=== PATIENT | female | born 2000 | race Caucasian/White ===

== ENCOUNTER 2020-02-06 08:32 | Emergency (ER) | payer OTHER ==
[2020-02-06 08:39] VITALS: BP 118/70
[2020-02-06] MEDS ORDERED: ACETAMINOPHEN 325 MG TABLET PO ONE (09:15)
[2020-02-06] MEDS ORDERED: HYDROCODONE/ACETAMINOPHEN 5-325 MG (6 TAB/ER DISP) PO PRN (09:41)
--- NOTE | 2020-02-06 14:08 | ER Document Report ---
Entered by JODI RODRIGUEZ SCRIBE 02/06/20 0934 Acting as scribe for:YOJANA VELÁZQUEZ MD ED Hand/Wrist Injury - General Chief Complaint: Finger Injury Stated Complaint: FINGER INJURY Time Seen by Provider: 02/06/20 09:22 Primary Care Provider: MAHAD ARRIAGA PA-C [Primary Care Provider] - Follow up as needed Mode of Arrival: Ambulatory Information source: Patient Notes: This 19 year old female patient presents to the ED today with complaints of a nail injury on her right 3rd digit that occurred just prior to arrival. Patient states that she was running up the stairs, tripped, and fell forward, landing on her hand. She states that she wears acrylic nails and believes that the acrylic nail pulled her actual nail from the nail bed. She states that the nail itself feels "weird, like a pressure." Denies any other complaints. - Related Data Allergies/Adverse Reactions: No Known Allergies Allergy (Unverified 02/06/20 09:16) Past Medical History - General Information source: Patient - Social History Smoking Status: Never Smoker Cigarette use (# per day): No Chew tobacco use (# tins/day): No Smoking Education Provided: No Frequency of alcohol use: None Drug Abuse: None Lives with: Spouse/Significant other Family History: Reviewed & Not Pertinent Patient has suicidal ideation: No Patient has homicidal ideation: No Past Surgical History: Reports: Hx Tonsillectomy - 2017 Review of Systems - Review of Systems Constitutional: No symptoms reported EENT: No symptoms reported Cardiovascular: No symptoms reported Respiratory: No symptoms reported Gastrointestinal: No symptoms reported Genitourinary: No symptoms reported Female Genitourinary: No symptoms reported Musculoskeletal: No symptoms reported Skin: See HPI Hematologic/Lymphatic: No symptoms reported Neurological/Psychological: No symptoms reported Physical Exam - Vital signs Vitals: Temp Pulse Resp BP Pulse Ox 98 F 78 16 118/70 98 02/06/20 08:39 02/06/20 08:39 02/06/20 08:39 02/06/20 08:39 02/06/20 08:39 Interpretation: Normal - General General appearance: Appears well, Alert - HEENT Head: Normocephalic, Atraumatic Eyes: Normal Pupils: PERRL - Respiratory Respiratory status: No respiratory distress Chest status: Nontender Breath sounds: Normal Chest palpation: Normal - Cardiovascular Rhythm: Regular Heart sounds: Normal auscultation Murmur: No - Abdominal Inspection: Normal Distension: No distension Bowel sounds: Normal Tenderness: Nontender Organomegaly: No organomegaly - Back Back: Normal, Nontender - Extremities General lower extremity: Normal inspection. No: Edema Hand: Nail injury - On the right 3rd finger, there is a long, pointed acrylic nail glued on to the nail. The nail bed itself and the paronychia look fine; however, when I slightly lift the acrylic nail, the actual nail appears avulsed from the nail bed itself about 1/2-2/3. No active bleeding, Other - Pulse, sensation, and motor intact. - Neurological Neuro grossly intact: Yes Orientation: AAOx4 Kiran Coma Scale Eye Opening: Spontaneous [place] Coma Scale Verbal: Oriented [place] Coma Scale Motor: Obeys Commands [place] Coma Scale Total: 15 - Psychological Associated symptoms: Normal affect, Normal mood - Skin Skin Temperature: Warm Skin Moisture: Dry Skin Color: Normal Course - Vital Signs Vital signs: Temp Pulse Resp BP Pulse Ox 98 F 78 16 118/70 98 02/06/20 08:39 02/06/20 08:39 02/06/20 08:39 02/06/20 08:39 02/06/20 08:39 - Laboratory Results Critical Laboratory Results Reviewed: No Critical Results - Radiology Results Critical Radiology Results Reviewed: No Critical Results Discharge - Discharge Clinical Impression: Fingernail avulsion, partial Qualifiers: Encounter type: initial encounter Qualified Code(s): S61.309A - Unspecified open wound of unspecified finger with damage to nail, initial encounter Condition: Stable Disposition: HOME, SELF-CARE Additional Instructions: Protect your nailbed by using tape around the finger and the nail so that it does not lift up. In a few days, try using a dermal tool with a cut off blade to cut through the acrylic nail so it does not stick out beyond the end of your finger. At this time, it appears that the nail base is intact and a new finger nail should grow out normally. Follow-up with your primary care provider or local orthopedic doctor if you have any problems. Forms: Parent Work Note Referrals: MAHAD ARRIAGA PA-C [Primary Care Provider] - Follow up as needed I personally performed the services described in the documentation, reviewed and edited the documentation which was dictated to the scribe in my presence, and it accurately records my words and actions.
== END 2020-02-06 09:58 | disposition home or self-care (01) ==
LOC: ER 08:32
DX: S61.309A Unspecified open wound of unspecified finger with damage to nail, initial encounter (principal); W10.9XXA Fall (on) (from) unspecified stairs and steps, initial encounter
CPT/HCPCS: 99284